=== PATIENT | male | born 1980 | race Two or more races ===

== ENCOUNTER 2024-05-17 15:22 | Emergency (ER) | payer MEDICAID, OTHER ==
[~2024-05-17] VITALS: Ht 190.5 cm; Wt 79.6 kg
[2024-05-17 18:23] LABS: Urine Bacteria None Seen /hpf (None Seen)
[2024-05-17 18:35] LABS: Urine Blood Negative /uL (Negative); Urine Clarity Clear (Clear); Urine Color Yellow (Yellow); Urine Protein, UAD Negative (Negative); Urine Specific Gravity 1.023 (1.001-1.035); Urine Urobilinogen Normal (Negative); Urine WBC 14 /hpf (0 - 3)
[2024-05-17] MEDS ORDERED: CEPH500C PO (19:38)
[2024-05-17 21:20] VITALS: BP 166/95; TEMP 97.4
[2024-05-17 21:25] VITALS: PULSE 68; RESP 18; O2SAT 96
== END 2024-05-17 21:25 | disposition home or self-care (01) ==
LOC: ER 15:22
DX: N39.0 Urinary tract infection, site not specified (principal); F10.90 Alcohol use, unspecified, uncomplicated; Y90.0 Blood alcohol level of less than 20 mg/100 ml
CPT/HCPCS: 81001